=== PATIENT | female | born 1960 | race Caucasian/White ===

== ENCOUNTER 2023-08-05 18:11 | Inpatient (IN) | payer OTHER ==
[~2023-08-05] VITALS: Ht 172.7 cm; Wt 95.2 kg
[2023-08-05] MEDS ORDERED: Ondansetron HCl 2 MG / ML 2ML Vial IV ONE (18:25)
[2023-08-05] MEDS ORDERED: CeFAZolin 1000MG in D5W 50 ML IV ONE (18:25)
[2023-08-05] MEDS ORDERED: HYDROmorphone HCl/Pf 1MG SYR IV ONE ×3 (18:25→19:45)
[2023-08-05 18:38] LABS: BASOPHILS ABSOLUTE AUTO 0.06 K/mm3 (0.00-0.23); BASOPHILS PERCENT AUTO 1 % (0-2); EOSINOPHILS ABSOLUTE AUTO 0.22 K/mm3 (0.00-0.68); EOSINOPHILS PERCENT AUTO 2 % (0-6); Hematocrit 39.5 % (33.0-51.0); Hemoglobin 13.1 g/dL (11.5-16.0); IMMATURE GRAN ABSOLUTE AUTO 0.06 K/mm3 (0.00-0.10); IMMATURE GRAN PERCENT AUTO 1 % (0-1); LYMPHOCYTES ABSOLUTE AUTO 3.29 K/mm3 (0.84-5.20); LYMPHOCYTES PERCENT AUTO 30 % (21-46); MONOCYTES ABSOLUTE AUTO 0.77 K/mm3 (0.16-1.47); MONOCYTES PERCENT AUTO 7 % (4-13); Mean Corpuscular HGB 30.9 pg (26.0-34.0); Mean Corpuscular HGB Conc 33.2 g/dL (31.5-36.5); Mean Corpuscular Volume 93 fL (80-100); Mean Platelet Volume 11.7 fL (9.1-12.4); NEUTROPHILS ABSOLUTE AUTO 6.61 K/mm3 (1.96-9.15); NEUTROPHILS PERCENT AUTO 60 % (41-73); Platelet Count 300 K/mm3 (150-400); RDW Coefficient Variation 13.2 % (11.7-14.2); Red Blood Cell Count 4.24 M/mm3 (3.80-5.20); White Blood Cell Count 11.01 K/mm3 (4.00-11.30)
[2023-08-05] MEDS ORDERED: CeFAZolin Sodium 1,000 MG in NS 50 ML IV ONE (18:40)
[2023-08-05 18:56] LABS: Albumin, Blood 3.5 g/dL (3.4-5.0); Bilirubin, Total 0.3 mg/dL (0.1-1.0); Bun/Creatinine Ratio 16.4 (12.0-20.0); Calcium, Blood 8.7 mg/dL (8.5-10.1); Creatinine, Blood 0.79 mg/dL (0.40-1.00); Globulin, Blood 3.4 g/dL (2.2-4.0); Potassium, Blood 3.5 mmol/L (3.5-5.5); Total Protein, Blood 6.9 g/dL (6.4-8.2)
[2023-08-05] MEDS ORDERED: HYDROmorphone HCl/Pf 1MG SYR IV PRN ×2 (20:45→23:45)
[2023-08-05] MEDS ORDERED: Ondansetron HCl 2 MG / ML 2ML Vial IV PRN ×2 (20:45→21:30)
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
[2023-08-05 21:19] VITALS: BP 135/80
[2023-08-05] MEDS ORDERED: NS 1,000 ML IV SCH (21:30)
[2023-08-05] MEDS ORDERED: FentaNYL Citrate 50 MCG/ML 2 ML Injection IV PRN (21:30)
[2023-08-05] MEDS ORDERED: Sennosides 8.6 MG Tab PO SCH (22:00)
[2023-08-05] MEDS ORDERED: NS 1,000 ML IV ONE (22:00)
[2023-08-05] MEDS ORDERED: OxyCODONE 5 mg/Acetamin 325 mg TABLET PO PRN (23:45)
[2023-08-06] VITALS (24 sets, daily range): BP systolic 125–161; BP diastolic 57–93
[2023-08-06] MEDS ORDERED: CeFAZolin Sodium 2,000 MG in NS 50 ML IV SCH
[2023-08-06 04:51] LABS: Hematocrit 35.1 % (33.0-51.0); Hemoglobin 11.7 g/dL (11.5-16.0); Mean Corpuscular HGB 31.3 pg (26.0-34.0); Mean Corpuscular HGB Conc 33.3 g/dL (31.5-36.5); Mean Corpuscular Volume 94 fL (80-100); Mean Platelet Volume 11.6 fL (9.1-12.4); Platelet Count 274 K/mm3 (150-400); RDW Coefficient Variation 13.6 % (11.7-14.2); RDW Standard Deviation 47.1 fL (35.1-46.3); Red Blood Cell Count 3.74 M/mm3 (3.80-5.20); White Blood Cell Count 13.14 K/mm3 (4.00-11.30)
--- NOTE | 2023-08-06 05:01 | NUR ---
SHIFT SUMMARY PT ABLE TO SLEEP AFTER GETTING TO THE FLOOR. PAIN HAS BEEN MANAGED PER EMAR. PT HAD SOME FOOD BEFORE BECOMING NPO AT MIDNIGHT. CAP REFILL STILL WNL. PT ABLE TO WIGGLE TOES AND HAS SENSATION. PUREWICK IN PLACE, DRAINING YELLOW URINE. FAMILY AT BEDSIDE FOR SUPPORT. NO OTHER CONCERNS AT THIS TIME. CALL LIGHT WITHIN REACH
[2023-08-06] MEDS ORDERED: Lactated Ringer's 1,000 ML IV SCH (08:15)
[2023-08-06] MEDS ORDERED: Bupivacaine HCl 0.25% 30 ML Injection ONE ×2 (08:55→11:48)
[2023-08-06] MEDS ORDERED: FLU VACC QS2023-24(6MOS UP)/PF 60 MCG/0.5 ML SYRINGE IM PRN (09:40)
[2023-08-06] MEDS ORDERED: Midazolam HCl 1MG / ML 2ML Vial IV ONE (11:40)
[2023-08-06] MEDS ORDERED: propofoL 20 ML IV ONE (11:45)
[2023-08-06] MEDS ORDERED: Sugammadex Sodium 200 MG/2ML SDV (100 MG/ML) ONE (11:45)
[2023-08-06] MEDS ORDERED: FentaNYL Citrate 50 MCG/ML 2 ML Injection ONE ×3 (11:45→15:06)
[2023-08-06] MEDS ORDERED: Rocuronium Bromide 10 MG/ML 5ML Injection IV ONE (11:46)
[2023-08-06] MEDS ORDERED: Dexamethasone Sod Phos 10 MG/ML 1ML VIAL ONE ×2 (11:46→12:48)
[2023-08-06] MEDS ORDERED: Lidocaine HCl 2% 20 ML MDV ONE (11:46)
[2023-08-06] MEDS ORDERED: Ondansetron HCl 2 MG / ML 2ML Vial ONE (11:46)
[2023-08-06] MEDS ORDERED: EpiNEPhrine 1 MG/1 ML 1ML Vial ONE (11:46)
[2023-08-06] MEDS ORDERED: Bupivacaine 0.5% HCl 5 MG/ML 30MLVIAL ONE (11:48)
[2023-08-06] MEDS ORDERED: Phenylephrine HCl 100 MCG/ML-NS 10MLSYR (1MG/10ML) ONE ×2 (12:16→13:24)
[2023-08-06] MEDS ORDERED: CeFAZolin Sodium 1000 mg Vial ONE (12:30)
[2023-08-06] MEDS ORDERED: Ondansetron HCl 2 MG / ML 2ML Vial IV PRN (13:20)
[2023-08-06] MEDS ORDERED: HYDROmorphone HCl/Pf 1MG SYR IV PRN (13:25)
[2023-08-06] MEDS ORDERED: FentaNYL Citrate 50 MCG/ML 2 ML Injection IV PRN ×3 (13:25)
[2023-08-06] MEDS ORDERED: Metoclopramide HCl 5MG / ML 2ML Vial IV PRN (13:25)
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
[2023-08-06] MEDS ORDERED: HYDROmorphone HCl/Pf 1MG SYR ONE (14:42)
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
[2023-08-07 04:20] VITALS: BP 172/76
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
[2023-08-07 07:20] VITALS: BP 141/88
[2023-08-07] MEDS ORDERED: OxyCODONE 5 mg/Acetamin 325 mg TABLET PO PRN (10:30)
[2023-08-07] MEDS ORDERED: Zolpidem Tartrate 5 MG Tab PO PRN (14:30)
[2023-08-07 14:40] VITALS: BP 161/78
[2023-08-07 15:54] VITALS: BP 157/89
--- NOTE | 2023-08-07 17:47 | NUR ---
TELEPHONE CALL WITH DR GASPAR, STATED PATIENT CAN LEAVE TOMORROW/THURSDAY ON FIVE DAYS OF KEFLEX.
--- NOTE | 2023-08-07 18:42 | NUR ---
SHIFT SUMMARY PT A&OX4, VSS/RA, ALENA PO, VOIDING, AMB SBA FWW/GB, UP TO CHAIR T/O SHIFT, PAIN MANAGED WITH PO PAIN MEDS, FAMILY BEDSIDE. WILL REPORT TO ONCOMING NOC RN.
[2023-08-07 20:08] VITALS: BP 135/78
[2023-08-08 05:07] VITALS: BP 144/77
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
[2023-08-08 06:15] LABS: Hematocrit 32.5 % (33.0-51.0); Hemoglobin 10.5 g/dL (11.5-16.0); Mean Corpuscular HGB 30.9 pg (26.0-34.0); Mean Corpuscular HGB Conc 32.3 g/dL (31.5-36.5); Mean Corpuscular Volume 96 fL (80-100); Mean Platelet Volume 11.7 fL (9.1-12.4); Platelet Count 221 K/mm3 (150-400); RDW Coefficient Variation 13.6 % (11.7-14.2); RDW Standard Deviation 47.9 fL (35.1-46.3); White Blood Cell Count 10.47 K/mm3 (4.00-11.30)
[2023-08-08 06:40] LABS: Bun/Creatinine Ratio 18.1 (12.0-20.0); Calcium, Blood 8.2 mg/dL (8.5-10.1); Creatinine, Blood 0.77 mg/dL (0.40-1.00); Potassium, Blood 3.7 mmol/L (3.5-5.5)
[2023-08-08] MEDS ORDERED: Enoxaparin 40 MG/0.4 ML SYR SC SCH (09:00)
[2023-08-08 18:27] VITALS: BP 139/76
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
[2023-08-08 20:53] VITALS: BP 162/84
[2023-08-09 04:04] VITALS: BP 135/77
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
[2023-08-09 08:10] VITALS: BP 165/89
[2023-08-09 08:11] VITALS: BP 166/91
[2023-08-09] MEDS ORDERED: OxyCODONE HCL 5 MG TAB PO PRN (10:50)
[2023-08-09] MEDS ORDERED: Ketorolac Tromethamine 15mg Vial IV PRN (12:10)
[2023-08-09 14:31] VITALS: BP 144/81
[2023-08-09] MEDS ORDERED: Acetaminophen 500 MG Tab PO SCH (16:00)
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
[2023-08-09 19:44] VITALS: BP 142/88
[2023-08-09] MEDS ORDERED: Cephalexin Monohydrate 500 MG Cap PO SCH (21:00)
[2023-08-10 04:10] VITALS: BP 137/79
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
[2023-08-10 07:49] VITALS: BP 161/98
[2023-08-10 10:25] VITALS: BP 152/86
[2023-08-10] MEDS ORDERED: ACET500 PO (14:02)
[2023-08-10] MEDS ORDERED: CEPH500 PO (14:03)
[2023-08-10] MEDS ORDERED: OXAYDO5 M2 PO (14:03)
[2023-08-10] MEDS ORDERED: ZOLP5 PO (14:04)
[2023-08-10] MEDS ORDERED: SENN187 PO (14:04)
[2023-08-10] MEDS ORDERED: XARELTO20 MG PO (14:04)
[2023-08-10 15:43] VITALS: BP 160/87
--- NOTE | 2023-08-10 16:45 | NUR ---
DISCHARGE POD 4 I&D AND RODDING PT PAIN WELL CONTROLLED PER EMAR. DRESSING REMAINS CDI. ALL INSTRUCTIONS GONE OVER WITH PATIENT. EXTRA DRESSING SUPPLIES SENT WITH PATIENT. ALL SCRIPTS SENT IN. ESCORTED OUT VIA WHEELCHAIR.
--- NOTE | 2023-08-10 21:50 | NUR ---
PT CALLED WITH QUESTIONS REGARDING DISCHARGE MEDICATIONS. EDUCATED PT TO CALL SURGEON'S OFFICE IN AM TO INQUIRE ABOUT IBUPROFEN. CALLED AND LEFT VOICEMAIL FOR XARELTO + SENNA PLUS TO [facility] PER PT REQUEST. FAX MACHINE NOT WORKING AT THIS TIME.
== END 2023-08-10 16:33 | disposition home or self-care (01) | DRG 494 ==
LOC: ER 18:11 → SURS 20:44
PROVIDERS: Emergency Medicine; Internal Medicine; Nurse Practitioner Acute Care; Orthopaedic Surgery Sports Medicine; ADMIT Surgery
PROC: 0QSH06Z Reposition Left Tibia with Intramedullary Internal Fixation Device, Open Approach (ICD-10-PCS; principal; 2023-08-06 12:00)
DX: S82.252B Displaced comminuted fracture of shaft of left tibia, initial encounter for open fracture type I or II (principal); W34.00XA Accidental discharge from unspecified firearms or gun, initial encounter; Z88.0 Allergy status to penicillin; E66.9 Obesity, unspecified; Z68.32 Body mass index [BMI] 32.0-32.9, adult; K21.9 Gastro-esophageal reflux disease without esophagitis
CPT/HCPCS: 29505; 36415; 73590; 73701; 80048; 80053; 82947; 85025; 85027; 93005; 93010; 94762; 96365-59; 96375-59; 96376-59; 97110; 97116; 97162; 97165; 97530; 97535; 99291-25; A9270; C1713; C1769; G0390; J0171; J0690; J1100; J1170; J1650; J1885; J2371; J2405; J2704; J3010; J7030; J7120; Q9967